=== PATIENT | male | born 1995 | race Caucasian/White ===

== ENCOUNTER 2025-02-14 08:49 | Outpatient (CLI) | payer OTHER, SELFPAY ==
--- NOTE | ~2025-02-14 | CT_ITS ---
EXAMINATION: CT sinus wo con DATE: 02/14/2025 09:00 INDICATION: Chronic sinusitis TECHNIQUE: Computed tomography (CT) of the paranasal sinuses was performed without intravenous contrast. The dose-length product was 279.12 mGy-cm. Automated exposure control and iterative reconstruction technique were employed. COMPARISON: None FINDINGS: There is a mucous retention cyst of the left maxillary antrum. Rightward nasal septal deviation. Ostiomeatal units are patent. No mucoperiosteal reaction. No significant mucosal thickening or air-fluid level. Mastoids are pneumatized. IMPRESSION: 1. Mucous retention cyst left maxillary antrum. 2: Rightward nasal septal deviation. Reviewed, dictated and finalized at location O. L EXAMINER
== END 2025-02-14 08:50 | disposition home or self-care (01) ==
LOC: MICIMG 08:49
PROVIDERS: PCP Otolaryngology; Visit Provider Otolaryngology
DX: J34.1 Cyst and mucocele of nose and nasal sinus (principal); J34.2 Deviated nasal septum; J32.9 Chronic sinusitis, unspecified
CPT/HCPCS: 70486